=== PATIENT | female | born 1985 | race Caucasian/White ===

== ENCOUNTER 2017-06-24 10:18 | Emergency (ER) | payer OTHER ==
[~2017-06-24] VITALS: Ht 170.2 cm; Wt 80.7 kg
[2017-06-24 10:23] VITALS: BP 145/92
== END 2017-06-24 11:26 | disposition home or self-care (01) ==
LOC: ED 11:15
DX: B34.9 Viral infection, unspecified (principal); M94.0 Chondrocostal junction syndrome [Tietze]
CPT/HCPCS: 71020; 99284

== ENCOUNTER 2018-10-03 11:45 | Outpatient (CLI) | payer OTHER | END 2018-10-03 23:59 | disposition home or self-care (01) | LOC: CFH 11:45 | PROVIDERS: ATTEND Physician Assistant | DX: N94.6 Dysmenorrhea, unspecified (principal); R10.2 Pelvic and perineal pain | CPT/HCPCS: 76830 ==

== ENCOUNTER 2019-02-23 16:30 | Outpatient (CLI) | payer OTHER | END 2019-02-23 23:59 | disposition home or self-care (01) | LOC: RAD 16:30 | PROVIDERS: ATTEND Physician Assistant | DX: M79.661 Pain in right lower leg (principal); R60.0 Localized edema ==